=== PATIENT | male | born 1955 | race Caucasian/White ===

== ENCOUNTER 2018-01-27 15:58 | Emergency (ER) | payer SELFPAY ==
[~2018-01-27] VITALS: Ht 177.8 cm; Wt 90.3 kg
[2018-01-27 16:07] VITALS: Ht 177.8 cm; Wt 90.3 kg
[2018-01-27 17:11] LABS: BASOPHIL % 0.4 % (0-2); PLATELET COUNT 245 x10^3mcL (130-400); RED CELL DISTRIBUTION WIDTH 13.3 % (11.5-14.5)
[2018-01-27 17:19] LABS: CALCIUM 8.6 mg/dL (8.5-10.1); CARBON DIOXIDE 30.4 mmol/L (21-32); CHLORIDE SERUM 103 mmol/L (98-107); CREATININE SERUM 1.2 mg/dL (0.7-1.3); GFR1 > 60 mL/min; GLUCOSE SERUM 101 mg/dL (74-106); POTASSIUM SERUM 3.6 mmol/L (3.5-5.1); SODIUM SERUM 139 mmol/L (136-145)
[2018-01-27 17:23] LABS: ALKALINE PHOSPHATASE 64 U/L (46-116); ALT/SGPT 34 U/L (16-63); AST/SGOT 23 U/L (15-37); BILIRUBIN TOTAL 0.4 mg/dL (0.20-1.00); LIPASE 207 IU/L (73-393); TOTAL PROTEIN, SERUM 7.7 g/dL (6.4-8.2)
[2018-01-27 17:26] LABS: ALBUMIN 3.3 g/dL (3.4-5.0)
[2018-01-27 18:18] LABS: UA SPECIFIC GRAVITY 1.025 (1.005-1.035); microscopic required? YES; urine erythrocyte 2+ (NEGATIVE)
[2018-01-27 18:58] VITALS: BP 159/88
== END 2018-01-27 18:59 | disposition home or self-care (01) ==
LOC: ED 15:58
PROVIDERS: Emergency Medicine
DX: R33.9 Retention of urine, unspecified (principal); R39.198 Other difficulties with micturition; K59.00 Constipation, unspecified
CPT/HCPCS: 36415